=== PATIENT | female | born 1940 | race Caucasian/White ===

== ENCOUNTER 2021-12-11 10:09 | Observation (INO) | payer MEDICARE, OTHER ==
[2021-12-11] MEDS ORDERED: Ketorolac 30 MG/ML SDV IVPUSH ONE (11:28)
[2021-12-11 13:15] LABS: ESTIMATED GFR 56 mL/min (>60)
[2021-12-11] MEDS: Ondansetron 4 MG/2 ML SDV IV PRN (13:55)
[2021-12-11] MEDS: Acetaminophen 325 MG Tab PO PRN ×2 (13:56→19:42)
[2021-12-11] MEDS: oxyCODONE 5 MG Tab PO PRN ×2 (13:56→19:41)
[2021-12-11] MEDS: Enoxaparin 40 MG/0.4 ML Syringe SUBCUT SCH (14:16)
[2021-12-11] MEDS: cefTRIAXone 1 GM in Sodium Chloride 0.9% 50 ML IV SCH (15:12)
[2021-12-11] MEDS ORDERED: Haloperidol 1 MG Tab PO PRN (17:22)
[2021-12-11] MEDS: Melatonin 3 MG Tab PO SCH (20:46)
[2021-12-12] MEDS: Ondansetron 4 MG/2 ML SDV IV PRN ×3 (01:56→17:43)
[2021-12-12] MEDS: oxyCODONE 5 MG Tab PO PRN ×5 (05:28→20:57)
[2021-12-12] MEDS: Acetaminophen 325 MG Tab PO PRN ×2 (05:29→10:12)
[2021-12-12] MEDS ORDERED: Acetaminophen Soln 160 MG/5 ML UD Cup PO PRN (12:05)
[2021-12-12] MEDS: Ibuprofen 400 MG Tab PO PRN ×2 (13:38→20:56)
[2021-12-12] MEDS: Docusate Sodium 100 MG Cap PO SCH ×2 (13:39→20:57)
[2021-12-12] MEDS: Enoxaparin 40 MG/0.4 ML Syringe SUBCUT SCH (13:40)
[2021-12-12] MEDS: cefTRIAXone 1 GM in Sodium Chloride 0.9% 50 ML IV SCH (16:07)
[2021-12-12] MEDS: Melatonin 3 MG Tab PO SCH (20:57)
[2021-12-13] MEDS: oxyCODONE 5 MG Tab PO PRN ×4 (03:18→15:39)
[2021-12-13] MEDS: Docusate Sodium 100 MG Cap PO SCH ×2 (09:42→20:59)
[2021-12-13] MEDS: Acetaminophen 500 MG Tab PO SCH ×2 (13:30→21:00)
[2021-12-13] MEDS: Enoxaparin 40 MG/0.4 ML Syringe SUBCUT SCH (13:30)
[2021-12-13] MEDS: Melatonin 3 MG Tab PO SCH (21:00)
[2021-12-13] MEDS: Cefdinir 300 MG Cap PO SCH (21:00)
[2021-12-13] MEDS: Ondansetron 4 MG/2 ML SDV IV PRN (21:11)
[2021-12-14] MEDS: oxyCODONE 5 MG Tab PO PRN ×2 (03:16→08:09)
[2021-12-14] MEDS: Ondansetron 4 MG/2 ML SDV IV PRN (03:27)
[2021-12-14] MEDS: Docusate Sodium 100 MG Cap PO SCH ×2 (08:05→20:45)
[2021-12-14] MEDS: Acetaminophen 500 MG Tab PO SCH ×3 (08:05→20:44)
[2021-12-14] MEDS ORDERED: Bisacodyl 5 MG Tab PO ONE (09:00)
[2021-12-14] MEDS: Cefdinir 300 MG Cap PO SCH ×2 (10:23→20:43)
[2021-12-14] MEDS: traMADol 50 MG Tab PO PRN ×2 (12:19→17:56)
[2021-12-14] MEDS: Enoxaparin 40 MG/0.4 ML Syringe SUBCUT SCH (15:27)
[2021-12-14] MEDS: Melatonin 3 MG Tab PO SCH (20:43)
[2021-12-15] MEDS: traMADol 50 MG Tab PO PRN ×3 (01:27→16:36)
[2021-12-15] MEDS: Docusate Sodium 100 MG Cap PO SCH ×2 (08:26→20:00)
[2021-12-15] MEDS: Cefdinir 300 MG Cap PO SCH (08:26)
[2021-12-15] MEDS: Acetaminophen 500 MG Tab PO SCH ×4 (08:26→20:00)
[2021-12-15] MEDS ORDERED: Magnesium Citrate Solution 296 ML Bottle PO ONE (09:00)
[2021-12-15] MEDS ORDERED: Bisacodyl 10 MG Supp RECTAL ONE (14:30)
[2021-12-15] MEDS: Enoxaparin 40 MG/0.4 ML Syringe SUBCUT SCH (14:36)
[2021-12-15] MEDS ORDERED: Aluminum Hydroxide/Magnesium Hydroxide/Simethicone Susp 30 ML Cup PO PRN (15:40)
[2021-12-15] MEDS: Melatonin 3 MG Tab PO SCH (20:00)
[2021-12-16] MEDS: traMADol 50 MG Tab PO PRN ×2 (04:54→11:48)
[2021-12-16] MEDS: Docusate Sodium 100 MG Cap PO SCH (08:46)
[2021-12-16] MEDS: Acetaminophen 500 MG Tab PO SCH (08:52)
[2021-12-16] MEDS ORDERED: [UNRECOGNIZED DRUG - OTHER] IM ONE (12:45)
== END 2021-12-16 12:20 ==
LOC: JP.ED 10:09 → JP.ICU 10:58
PROVIDERS: ADMIT Hospitalist; ATTEND Internal Medicine
DX: S42.212A Unspecified displaced fracture of surgical neck of left humerus, initial encounter for closed fracture (principal); F02.80 Dementia in other diseases classified elsewhere, unspecified severity, without behavioral disturbance, psychotic disturbance, mood disturbance, and anxiety; N30.00 Acute cystitis without hematuria; G30.1 Alzheimer's disease with late onset; M16.11 Unilateral primary osteoarthritis, right hip; Z88.7 Allergy status to serum and vaccine; Z79.899 Other long term (current) drug therapy; Z20.822 Contact with and (suspected) exposure to COVID-19
CPT/HCPCS: 36415; 73030-LT; 73070-LT; 73100-LT; 73502-LT; 80053; 81001; 83735; 85025; 87086; 87088; 87186; 93005; 96365; 96372; 96374; 96375; 96376; 97110-GO; 97110-GP; 97162-GP; 97165-GO; 97535-GP; 99285-25; A9270-GY; G0378; J0696; J1650; J1885; J2405; U0002